=== PATIENT | male | born 1945 | race Caucasian/White ===

== ENCOUNTER → 2017-02-09 | Outpatient (CLI) | payer MEDICARE ==
[2017-02-09 07:46] LABS: ALT 26 U/L (21-72); AST 14 U/L (17-59); Cholesterol 153 mg/dL (<200); HDL Cholesterol 36 mg/dL (40-60); Triglycerides 93 mg/dL (<150)
== END | disposition home or self-care (01) ==
LOC: LABWHC1 06:57
PROVIDERS: ATTEND Internal Medicine Interventional Cardiology
DX: E78.2 Mixed hyperlipidemia (principal)
CPT/HCPCS: 36415; 80061; 84450; 84460

== ENCOUNTER → 2017-09-01 | Outpatient (CLI) | payer MEDICARE ==
[2017-09-01 08:15] LABS: ALT 30 U/L (21-72); AST 15 U/L (17-59); Alkaline Phosphatase 83 U/L (38-126); Anion Gap 8 mmol/L; Blood Urea Nitrogen 25 mg/dL (9-20); Calcium 9.4 mg/dL (8.4-10.2); Carbon Dioxide 29 mmol/L (22-30); Chloride 104 mmol/L (98-107); Cholesterol 183 mg/dL (<200); Glucose 131 mg/dL (74-99); HDL Cholesterol 36 mg/dL (40-60); Non-African American GFR(MDRD) >60 (>60 ml/min/1.73 sqM); Potassium 4.9 mmol/L (3.5-5.1); Sodium 141 mmol/L (137-145); Total Bilirubin 0.6 mg/dL (0.2-1.3)
== END | disposition home or self-care (01) ==
LOC: LABWHC1 07:12
PROVIDERS: ATTEND Internal Medicine Interventional Cardiology
DX: E78.2 Mixed hyperlipidemia (principal)
CPT/HCPCS: 36415; 80053; 80061

== ENCOUNTER → 2018-03-16 | Outpatient (CLI) | payer MEDICARE ==
[2018-03-16 09:34] LABS: ALT 52 U/L (21-72); AST 24 U/L (17-59); Cholesterol 121 mg/dL (<200); HDL Cholesterol 38 mg/dL (40-60); LDL Cholesterol,Calculated 66 mg/dL (0-99); Triglycerides 83 mg/dL (<150)
== END | disposition home or self-care (01) ==
LOC: LABWHC1 08:53
PROVIDERS: ATTEND Internal Medicine Interventional Cardiology
DX: E78.2 Mixed hyperlipidemia (principal)
CPT/HCPCS: 36415; 80061; 84450; 84460

== ENCOUNTER → 2018-09-26 | Outpatient (CLI) | payer MEDICARE ==
[2018-09-26 15:56] LABS: Albumin 3.9 g/dL (3.80-4.90); Albumin/Globulin Ratio 2.17 (1.20-2.10); Anion Gap 6.7 mmol/L (4.00-12.00); Calcium 8.7 mg/dL (8.7-10.3); Carbon Dioxide 26.3 mmol/L (21.6-31.8); Globulin 1.8 g/dL (2.1-3.7); Potassium 4.2 mmol/L (3.5-5.5); Total Bilirubin 0.6 mg/dL (0.3-1.2); Total Protein 5.7 g/dL (6.2-8.2)
[2018-09-26 15:57] LABS: LDL Cholesterol,Calculated 69.6 mg/dL (0.0-131.0); VLDL Calculation 15.4 mg/dL (5.00-40.00)
== END ==
LOC: LABWHC1 07:49
PROVIDERS: ATTEND Internal Medicine Interventional Cardiology
DX: E78.2 Mixed hyperlipidemia (principal)
CPT/HCPCS: 36415; 80053; 80061

== ENCOUNTER → 2019-04-09 | Outpatient (CLI) | payer MEDICARE ==
[2019-04-09 10:49] LABS: LDL Cholesterol,Calculated 65.6 mg/dL (0.0-131.0); VLDL Calculation 16.4 mg/dL (5.00-40.00)
== END | disposition home or self-care (01) ==
LOC: LABWHC1 07:06
PROVIDERS: ATTEND Internal Medicine Interventional Cardiology
DX: E78.2 Mixed hyperlipidemia (principal)
CPT/HCPCS: 36415; 80061; 84450; 84460

== ENCOUNTER → 2019-07-24 | Outpatient (CLI) | payer MEDICARE ==
[2019-07-24 08:35] LABS: African American GFR (CKD) >90 (>60 ml/min/1.73 sqM); Blood Urea Nitrogen 25 mg/dL (9-20)
--- NOTE | 2019-07-24 10:03 | CT ---
EXAMINATION TYPE: CT lumbar spine w con DATE OF EXAM: 07/24/2019 COMPARISON: CT lumbar spine August 24, 2016 HISTORY: Low back pain and radiculopathy. Automated exposure control for dose reduction was used. CONTRAST: CT scan of the lumbar is performed with IV Contrast, patient injected with 100 mL of Isovue 300. Enhanced CT of the lumbar spine was performed. Bone and soft tissue window settings are submitted as well as coronal and sagittal reconstructions. 5 lumbar type vertebra are redemonstrated. There is slight levoconvex scoliotic curvature at L3 level slightly more prominent from prior study. There is [id number] disc space narrowing with vacuum disc phenomenon L1-L2 level new from Prior. There is advanced disc space narrowing with vacuum disc phenomenon and endplate sclerosis with moderate anterior spurring at L2-L3 level more prominent from prior study. Moderate to advanced disc space narrowing L3-L4 level with moderate anterior spurring is fairly stabl e from prior. Slight grade 1 retrolisthesis L3 on L4 redemonstrated. Mild disc space narrowing with v acuum disc phenomenon L4-L5 level is redemonstrated. Fairly advanced disc space narrowing with modera te spurring L5-S1 level is redemonstrated. Posterior spur disc complexes efface the anterior thecal sac L2-L3, L3-L4, L5-S1 levels on current st udy. Review of axial images shows mild broad disc bulge and vacuum disc phenomenon L1-L2 level axial image 27. There is more prominent broad disc bulge and facet arthropathy L2-L3 level axial image 37 of effacing anterior and posterior lateral thecal sac with suspected moderate left and severe right-sided neural foraminal narrowing. Axial images at L3-L4 levels were advanced broad disc bulge with facet arthropathy effacing the anter ior thecal sac and causing moderate right greater than left bilateral neural foraminal narrowing. Axial images at L4-L5 level show advanced facet degenerative changes. There are bilateral laminectomy defects and spinous process resection. There is effacement of the posterior lateral thecal sac. Axial images at L5-S1 level shows moderate facet degenerative changes with spinous process resection. There is posterior spur disc. There is moderate bilateral inferior neural foraminal narrowing. Moderate calcified plaque of the aorta extends into iliac branch vessels. No suspicious enhancement i s seen. IMPRESSION: Multilevel degenerative changes lumbar spine as detailed above with some progression in f indings noted upper lumbar spine from prior study.
== END | disposition home or self-care (01) ==
LOC: RADCTMAIN 07:53
PROVIDERS: ATTEND Family Medicine
DX: M47.26 Other spondylosis with radiculopathy, lumbar region (principal)
CPT/HCPCS: 82565; 84520; 72132; 36415; Q9967

== ENCOUNTER → 2019-10-07 | Outpatient (CLI) | payer MEDICARE ==
--- NOTE | 2019-10-07 13:41 | US ---
EXAMINATION EXAMINATION TYPE: US thyroid st tissue head/neck DATE OF EXAM: 10/07/2019 COMPARISON: NONE CLINICAL HISTORY: R22.0 Localized swelling, mass and lump, head. On PACS technique/FINDINGS: The right submandibular region was scanned using grayscale and color imag ing at the area the palpable abnormality. At patient's palpable on right are several enlarged lymph nodes. 1.) 2.8 x 1.4 x 2.4 cm 2.) 2.0 x 1.3 x 2.5 cm No additional cystic or solid mass. IMPRESSION: Abnormally enlarged right submandibular lymph nodes. Fine-needle aspiration is recommend ed. CT neck with contrast could be considered prior to this to assess for source of the adenopathy.
== END | disposition home or self-care (01) ==
LOC: RADUSWWP 11:57
PROVIDERS: ATTEND Family Medicine
DX: R59.0 Localized enlarged lymph nodes (principal)
CPT/HCPCS: 76536

== ENCOUNTER → 2019-10-09 | Outpatient (CLI) | payer MEDICARE ==
[2019-10-09 12:01] LABS: African American GFR (CKD) 68.6 (60.0-200.0); Albumin 4.1 g/dL (3.80-4.90); Albumin/Globulin Ratio 2.16 (1.60-3.17); Anion Gap 10.1 mmol/L (4.00-12.00); BUN/Creat Ratio 24.17 Ratio (12.00-20.00); Carbon Dioxide 24.9 mmol/L (21.6-31.8); Chol/HDL Ratio 3.15; Globulin 1.9 g/dL (1.6-3.3); LDL Cholesterol,Calculated 67.2 mg/dL (0.0-131.0); Non-African American GFR(CKD) 59.2 (60.0-200.0); Potassium 4.2 mmol/L (3.5-5.5); VLDL Calculation 16.8 mg/dL (5.00-40.00)
== END | disposition home or self-care (01) ==
LOC: LABWHC1 07:25
PROVIDERS: ATTEND Internal Medicine Interventional Cardiology
DX: E78.2 Mixed hyperlipidemia (principal)
CPT/HCPCS: 36415; 80053; 80061

== ENCOUNTER → 2019-11-15 | Outpatient (CLI) | payer MEDICARE ==
[2019-11-15 08:19] LABS: Basophils # (A) 0.1 k/uL (0-0.2); Basophils % (A) 1 %; Eosinophils # (A) 0.2 k/uL (0-0.7); Eosinophils % (A) 3 %; HCT 43.4 % (39.0-53.0); HGB 13.7 gm/dL (13.0-17.5); Lymphocytes # (A) 1.7 k/uL (1.0-4.8); Lymphocytes % (A) 23 %; MCH 31.5 pg (25.0-35.0); MCHC 31.5 g/dL (31.0-37.0); MCV 100.3 fL (80.0-100.0); Mean Platelet Volume 7.2; Monocytes # (A) 0.6 k/uL (0-1.0); Monocytes % (A) 8 %; Neutrophils # (A) 4.6 k/uL (1.3-7.7); Neutrophils % (A) 62 %; Platelet Count 187 k/uL (150-450); RBC 4.33 m/uL (4.30-5.90); RDW 13.1 % (11.5-15.5); WBC 7.4 k/uL (3.8-10.6)
[2019-11-15 17:56] LABS: Carcinoembryonic Antigen 1.6 ng/mL (0.0-4.9)
[2019-11-15 18:12] LABS: Beta 2 Microglobulin 2.1 mg/L (0.61-2.37)
[2019-11-18 04:51] LABS: EBV - VCA IgM <10.0 U/mL (<36.0)
[2019-11-18 18:33] LABS: Bartonella henselae Ab, IgG <1:64; Bartonella henselae Ab, IgM < 1:16
== END | disposition home or self-care (01) ==
LOC: LABWHC1 07:23
PROVIDERS: ATTEND Otolaryngology
DX: R59.1 Generalized enlarged lymph nodes (principal); R22.1 Localized swelling, mass and lump, neck
CPT/HCPCS: 36415; 82232; 82378; 83615; 85025; 86611; 86665

== ENCOUNTER 2020-01-08 08:50 | Day surgery (SDC) | payer MEDICARE ==
[2020-01-08] MEDS ORDERED: ALPRAZolam 0.25 MG TAB PO ONE (09:08)
[2020-01-08 09:17] VITALS: TEMP 97.6
[2020-01-08 09:50] LABS: Glucose,Whole Blood 148 mg/dL (75-99)
[2020-01-08 10:49] VITALS: BP 163/78; PULSE 67; RESP 18
--- NOTE | 2020-01-08 14:07 | US ---
EXAMINATION TYPE: US biopsy lymph node, US FNA first lesion DATE OF EXAM: 01/08/2020 HISTORY: Right submandibular adenopathy. FINDINGS: Maximal barrier technique was utilized. Hand hygiene achieved with soap and water. The ski n overlying a suitable path to the patient's right submandibular adenopathy was localized with ultras ound and the overlying skin prepped and draped. Ultrasound was utilized with sterile technique. 2 as pirations were performed using 25-gauge needle under direct ultrasound guidance, aspirate specimen cordova bmitted to cytology, based on the findings by the pathologist, Lidocaine was used for local anesthesi a. A skin fabián was made with a scalpel. An 18-gauge needle was advanced under direct ultrasound roxanna dance and core specimen obtained of the mass. Specimen submitted in formalin to Pathology. Following the procedure, hemostasis achieved and the patient is discharged in stable condition without complic ation. IMPRESSION:STATUS POST ULTRASOUND GUIDED FINE-NEEDLE ASPIRATION AND CORE BIOPSY OF right submandibula r MASS, PATHOLOGY IS PENDING. THIS PROCEDURE IS PERFORMED BY THE UNDERSIGNED.
== END 2020-01-08 10:55 | disposition home or self-care (01) ==
LOC: RADPROMAIN 08:50
PROVIDERS: ATTEND Otolaryngology
DX: R59.0 Localized enlarged lymph nodes (principal)
CPT/HCPCS: 10005; 38505; 76942; 88173; 88305; 88341; 88342

== ENCOUNTER → 2020-04-16 | Outpatient (CLI) | payer MEDICARE ==
[2020-04-16 13:45] LABS: African American GFR (CKD) >90 (>60 ml/min/1.73 sqM); Blood Urea Nitrogen 18 mg/dL (9-20); Non-African American GFR(CKD) 86 (>60 ml/min/1.73 sqM)
--- NOTE | 2020-04-16 14:28 | CT ---
EXAMINATION TYPE: CT soft tissue neck w con DATE OF EXAM: 04/16/2020 HISTORY: right side submandibular mass/swelling COMPARISON: Neck ultrasound October 07, 2019. CT DLP: 488.6 mGycm. Automated Exposure Control for Dose Reduction was Utilized. TECHNIQUE: CT scan of the neck is performed with IV Contrast, patient injected with 100 mL of Isovue 300, axial images are obtained, coronal and sagittal reformatted images are reviewed. FINDINGS: Airway: No obvious mucosal mass. Parotid/submandibular glands: Parotid and submandibular glands are symmetric and felt within normal l imits. There are region of right submandibular gland there are several abnormal lymph nodes identified for r eference there is 2.0 x 1.4 cm lymph node axial image 49 noted. Just inferior posterior to this there is 1.9 x 1.0 cm lymph node image 46 and regional draining external jugular vein anterior to SCM. The re is enlarged 1.2 x 1.0 cm lymph node at same level anterior to the carotid and jugular vessels medi al to the SCM. No definitive greater than 1 cm left-sided neck adenopathy. No suspicious greater than 1 cm adenopathy below the level of the hyoid bone. Carotid/Vascular Structures: Mild to moderate mixed plaque at carotid bulb extending into the proxima l internal carotid arteries bilaterally without hemodynamically significant stenosis. Osseous Structures: Straightening of cervical spine with moderate spurring and disc space narrowing C 5-C6 and C6-C7 levels. Other: Mild to moderate eccentric mucosal thickening inferior left maxillary sinus. Moderate mucosal thickening involving anterior ethmoid sinuses bilaterally. IMPRESSION: Redemonstration of abnormal enlarged right submandibular lymph nodes with additional susp icious nearby right neck adenopathy above the hyoid bone. Finding should be correlated with FNA and b iopsy results January 08, 2020. Differential includes neoplasm such as lymphoma and oral pharyngeal marce plasm. Further investigation with PET scan should be considered based on clinical correlation.
== END | disposition home or self-care (01) ==
LOC: RADCTMAIN 13:05
PROVIDERS: ATTEND Otolaryngology
DX: R22.1 Localized swelling, mass and lump, neck (principal); R59.0 Localized enlarged lymph nodes; Z88.5 Allergy status to narcotic agent; Z88.6 Allergy status to analgesic agent
CPT/HCPCS: 82565; 84520; 70491; 36415; Q9967

== ENCOUNTER 2020-04-21 08:07 | Day surgery (SDC) | payer MEDICARE ==
[2020-04-21 08:36] LABS: Glucose,Whole Blood 121 mg/dL (75-99)
[2020-04-21 08:45] VITALS: RESP 16; TEMP 98.2
--- NOTE | 2020-04-21 10:15 | US ---
EXAMINATION TYPE: US biopsy lymph node, US FNA first lesion DATE OF EXAM: 04/21/2020 HISTORY: Right submandibular adenopathy FINDINGS: Maximal barrier technique was utilized. Hand hygiene achieved with soap and water. The ski n overlying a suitable path to the patient's adenopathy in the right submandibular location was local ized with ultrasound and the overlying skin prepped and draped. Ultrasound was utilized with sterile technique. Lidocaine was used for local anesthesia. 2 passes with a 25-gauge needle and a single pa ss with a 21 gauge needle were made and submitted to cytology. Pathologist suggested 2 core biopsies which were obtained. 20-gauge needle using similar technique and submitted to pathology. A skin fabián was made with a scalpel for core biopsy. Following the procedure, hemostasis achieved and the patien t is discharged in stable condition without complication. IMPRESSION:STATUS POST ULTRASOUND GUIDED CORE AND ASPIRATION BIOPSY OF RIGHT SUBMANDIBULAR ADENOPATHY , PATHOLOGY IS PENDING. THIS PROCEDURE IS PERFORMED BY THE UNDERSIGNED.
[2020-04-21 10:37] VITALS: BP 141/71; PULSE 78
== END 2020-04-21 10:25 | disposition home or self-care (01) ==
LOC: RADPROMAIN 08:07
PROVIDERS: ATTEND Otolaryngology
DX: R22.1 Localized swelling, mass and lump, neck (principal); R59.9 Enlarged lymph nodes, unspecified; Z88.6 Allergy status to analgesic agent; Z88.5 Allergy status to narcotic agent
CPT/HCPCS: 10005; 38505; 76942; 88173; 88305

== ENCOUNTER → 2020-05-05 | Day surgery (SDC) | payer MEDICARE ==
[2020-05-01 15:31] VITALS: BMI 33.5
[~2020-05-05] MED LIST: LACTATED RINGERS 1,000 ML IV SCH; PROPOFOL 10 MG/ML 20 ML VIAL IV ONE
[2020-05-05 09:59] VITALS: TEMP 97.8
[2020-05-05 10:11] LABS: Glucose,Whole Blood 136 mg/dL (75-99)
--- NOTE | 2020-05-05 10:15 | P.GSHP ---
History of Present Illness H&P Date: 05/05/20 Chief Complaint: Change in bowel habits Patient here today for colonoscopy. Has had some intermittent diarrhea and constipation. He thinks he had a bowel resection many years ago for a benign tumor. He has had colon polyps in the past. Last colonoscopy over 10 years ago. No rectal bleeding. No family history of colon cancer. 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 Last Myocardial Infarction Date:: 1997 History of Any Multi-Drug Resistant Organisms: None Reported Past Surgical History: Back Surgery, Bowel Resection, Heart Catheterization With Stent, Tonsillectomy Additional Past Surgical History / Comment(s): Stent in right coronary artery by Dr Mart, bowel resection 1979, uvula removal for sleep apnea, left carotid endarterectomy in approximately [address] Evans, back surgery times [address] Rogers[address] Colonoscopy. Past Anesthesia/Blood Transfusion Reactions: Previous Problems w/ Anesthesia Additional Past Anesthesia/Blood Transfusion Reaction / Comment(s): difficult intubation with left carotid endarterectomy surgery but later they always used a glidescope to intubate him. Date of Last Stent Placement:: 1997 Past Psychological History: Anxiety Past Alcohol Use History: Rare Additional Past Alcohol Use History / Comment(s): quit smoking in 1999 Past Drug Use History: None Reported - Past Family History Mother Family Medical History: CVA/TIA Father Additional Family Medical History / Comment(s): of surgical complications Medications and Allergies Home Medications Medication Instructions Recorded Confirmed Type Aspirin 325 mg PO HS 12/26/19 05/05/20 History Atorvastatin [Lipitor] 80 mg PO HS 12/26/19 05/05/20 History Losartan Potassium [Cozaar] 100 mg PO HS 12/26/19 05/05/20 History Niacin [Niacin ER] 1,000 mg PO HS 12/26/19 05/05/20 History Omeprazole [PriLOSEC] 40 mg PO HS 12/26/19 05/05/20 History metFORMIN HCL [Glucophage] 500 mg PO HS 12/26/19 05/05/20 History Albuterol Inhaler [Ventolin Hfa 1 puff INHALATION RT-QID PRN 04/07/20 05/05/20 History Inhaler] Memantine HCl 5 mg PO HS 04/07/20 05/05/20 History Allergies Allergy/AdvReac Type Severity Reaction Status Date / Time No Known Allergies Allergy Verified 05/05/20 09:50 Surgical - Exam Vital Signs Temp Pulse Resp BP Pulse Ox 97.8 F 90 18 141/81 98 05/05/20 09:58 05/05/20 09:58 05/05/20 09:58 05/05/20 09:58 05/05/20 09:58 Physical exam: General: Well-developed, well-nourished HEENT: Normocephalic, sclerae nonicteric Abdomen: Nontender, nondistended Extremities: No edema Neuro: Alert and oriented Results - Labs Abnormal Lab Results - Last 24 Hours (Table) 05/05/20 Range/Units 10:07 POC Glucose (mg/dL) 136 H (75-99) mg/dL Assessment and Plan (1) Change in bowel habits Narrative/Plan: Will proceed with colonoscopy Current Visit: Yes Status: Acute Code(s): R19.4 - CHANGE IN BOWEL HABIT SNOMED Code(s): 412621557
--- NOTE | 2020-05-05 10:43 | P.PCN ---
Date of Procedure: 05/05/20 Procedure(s) Performed: PREOPERATIVE DIAGNOSIS: Change in bowel habits POSTOPERATIVE DIAGNOSIS: Multiple Polyps PROCEDURE: Colonoscopy with snare polypectomy ANESTHESIA: MAC SURGEON: Naeem Kimbrough M.D. SPECIMENS: Polyps ENDOSCOPIC PROCEDURE: The patient was placed on the endoscopy table in the left decubitus position. The Olympus colonoscope was inserted into the anus and passed under direct visualization to the ascending colon. At one point I thought I could visualize the cecum from a distance but I cannot be sure. We were unable to advance further given distal tortuosity. The ascending appeared normal. In the transverse colon 2 polyps were seen and removed using the snare with cautery technique. In the descending colon 2 polyps were seen and again removed using the snare with cautery technique. In the rectum a single polyp was identified and removed using the snare with cautery technique. There was no visible diverticulosis. Some of these polyps appeared to be fulgurated during the removal. Rectal polyp and ascending colon polyps were sent together. Digital rectal examination was normal. The patient was taken to the recovery room in stable condition per anesthesia guidelines. RECOMMENDATIONS: Await biopsy results. Advise follow-up colonoscopy 2 years.
[2020-05-05 10:46] VITALS: RESP 20
[2020-05-05 11:02] VITALS: BP 132/64; PULSE 68
== END ==
LOC: ORWHC2ENDO 09:32
PROVIDERS: ATTEND Surgery
DX: D12.4 Benign neoplasm of descending colon (principal); D12.3 Benign neoplasm of transverse colon; R19.7 Diarrhea, unspecified; K59.00 Constipation, unspecified; Z86.010 Personal history of colon polyps; I25.119 Atherosclerotic heart disease of native coronary artery with unspecified angina pectoris; I10 Essential (primary) hypertension; E11.9 Type 2 diabetes mellitus without complications; I25.2 Old myocardial infarction; E78.5 Hyperlipidemia, unspecified; K21.9 Gastro-esophageal reflux disease without esophagitis; F01.50 Vascular dementia, unspecified severity, without behavioral disturbance, psychotic disturbance, mood disturbance, and anxiety; F41.9 Anxiety disorder, unspecified; J45.909 Unspecified asthma, uncomplicated; Z95.5 Presence of coronary angioplasty implant and graft; Z79.82 Long term (current) use of aspirin; Z79.899 Other long term (current) drug therapy; Z79.84 Long term (current) use of oral hypoglycemic drugs; Z98.890 Other specified postprocedural states; Z90.49 Acquired absence of other specified parts of digestive tract; Z90.89 Acquired absence of other organs; Z87.891 Personal history of nicotine dependence; Z82.3 Family history of stroke
CPT/HCPCS: 88305; 45385; J2704

== ENCOUNTER → 2020-05-06 | Outpatient (CLI) | payer MEDICARE ==
[2020-05-06 20:32] LABS: Anion Gap 9.2 mmol/L (4.00-12.00); Carbon Dioxide 24.8 mmol/L (21.6-31.8); Potassium 4.7 mmol/L (3.5-5.5)
== END | disposition home or self-care (01) ==
LOC: LABWHC1 09:28
PROVIDERS: ATTEND Otolaryngology
DX: I10 Essential (primary) hypertension (principal)
CPT/HCPCS: 36415; 80051

== ENCOUNTER → 2020-07-31 | Outpatient (CLI) | payer MEDICARE ==
[2020-07-31 19:24] LABS: Albumin 3.9 g/dL (3.80-4.90); Albumin/Globulin Ratio 1.86 (1.60-3.17); Anion Gap 6.8 mmol/L (4.00-12.00); Calcium 9.2 mg/dL (8.7-10.3); Carbon Dioxide 27.2 mmol/L (21.6-31.8); Chol/HDL Ratio 2.82; Globulin 2.1 g/dL (1.6-3.3); LDL Cholesterol,Calculated 55.6 mg/dL (0.0-131.0); Non-African American GFR(CKD) 73.3 (60.0-200.0); Potassium 4.9 mmol/L (3.5-5.5); Total Bilirubin 0.9 mg/dL (0.3-1.2); VLDL Calculation 13.4 mg/dL (5.00-40.00)
== END | disposition home or self-care (01) ==
LOC: LABWHC1 07:45
PROVIDERS: ATTEND Internal Medicine Interventional Cardiology
DX: E78.2 Mixed hyperlipidemia (principal)
CPT/HCPCS: 36415; 80053; 80061

== ENCOUNTER → 2020-08-17 | Outpatient (CLI) | payer MEDICARE ==
--- NOTE | 2020-08-17 18:24 | CT ---
EXAMINATION TYPE: CT soft tissue neck w con DATE OF EXAM: 08/17/2020 9:37 AM COMPARISON: CT neck 04/16/2020. Ultrasound biopsy 04/21/2020. HISTORY: Localized swelling, mass/lump right side neck CT DLP: 544.0 mGycm Automated exposure control for dose reduction was used. CONTRAST: CT scan of the neck is performed following with IV Contrast, patient injected with 100 mL of Isovue 3 00. Axial images are obtained, coronal and sagittal reformatted images are reviewed. FINDINGS: Within the right submandibular region there is redemonstrated cervical lymphadenopathy, some of which is unchanged and some of which has significantly decreased in size versus 04/16/2020 CT comparison. T he largest 2 lymph nodes measure 1.5 x 2.0 cm (3:60) and 0.8 x 1.2 cm (3:59) and are unchanged versus 04/16/2020. A prejugular 0.9 x 1.3 cm lymph node (3:55) is decreased in size and previously measured 1.0 x 1.4 cm. A now nonenlarged lymph node just posterior to the submandibular gland measures 0.4 x 0 .7 cm (3:53) , decreased in size previously measuring 1.0 x 1.9 cm. The parotid and mandibular glands are symmetric and unremarkable. Redemonstrated atherosclerotic dise ase and intimal thickening of the bilateral carotid bulbs without hemodynamically significant stenosi s. There is mucosal thickening of the paranasal sinuses. Mastoid air cells are clear. Degenerative prater es of the cervical spine. IMPRESSION: Right submandibular lymphadenopathy as above, some of which is unchanged and some of which is decreas ed in size versus 04/16/2020 CT comparison.
== END | disposition home or self-care (01) ==
LOC: RADCTMAIN 08:39
PROVIDERS: ATTEND Otolaryngology
DX: R59.0 Localized enlarged lymph nodes (principal); Z88.6 Allergy status to analgesic agent; Z88.5 Allergy status to narcotic agent; Z88.2 Allergy status to sulfonamides
CPT/HCPCS: 82565; 84520; 70491; 36415; Q9967

== ENCOUNTER 2020-09-01 12:13 | Day surgery (SDC) | payer MEDICARE ==
[2020-09-01 12:37] VITALS: RESP 16; TEMP 97.7
[2020-09-01 13:18] VITALS: BP 156/78; PULSE 80
--- NOTE | 2020-09-01 14:11 | US ---
ULTRASOUND GUIDED CORE BIOPSY SOFT TISSUE RIGHT NECK LYMPH NODE: CLINICAL HISTORY: Right neck mass FINDINGS: The procedure was explained to the patient. The risks, complications, benefits and alternatives were discussed and any questions were answered. Informed consent was obtained. Patient was placed supin e on the ultrasound table and prepped and draped in the usual sterile fashion. Utilizing a 25 gauge needle, 3 passes were made into the right neck. Patient was stable throughout the procedure. Pathology is pending. All elements of maximal barrier technique were utilized. IMPRESSION: 1. Successful ultrasound biopsy right neck lymph node.
== END 2020-09-01 13:25 | disposition home or self-care (01) ==
LOC: RADPROMAIN 12:13
PROVIDERS: ATTEND Otolaryngology
DX: R59.1 Generalized enlarged lymph nodes (principal); R22.1 Localized swelling, mass and lump, neck; Z88.5 Allergy status to narcotic agent
CPT/HCPCS: 38505; 76942; 88305; 88341; 88342

== ENCOUNTER → 2021-02-03 | Outpatient (CLI) | payer MEDICARE ==
[2021-02-03 17:08] LABS: Chol/HDL Ratio 3.94; LDL Cholesterol,Calculated 81.4 mg/dL (0.0-131.0); VLDL Calculation 24.6 mg/dL (5.00-40.00)
== END | disposition home or self-care (01) ==
LOC: LABWHC1 08:14
PROVIDERS: ATTEND Nurse Practitioner Adult Health
DX: E78.2 Mixed hyperlipidemia (principal)
CPT/HCPCS: 36415; 80061; 84450; 84460

== ENCOUNTER → 2021-07-07 | Outpatient (CLI) | payer MEDICARE ==
--- NOTE | 2021-07-08 07:35 | CT ---
EXAMINATION TYPE: CT abdomen pelvis w con DATE OF EXAM: 07/07/2021 COMPARISON: None. HISTORY: Abdominal and pelvic pain not further specified. Constipation. CT DLP: 1632.70 mGycm, Automated Exposure Control for Dose Reduction was Utilized. CONTRAST: CT scan of the abdomen and pelvis is performed with oral and with IV Contrast, patient injected with 100 mL of Isovue 300. FINDINGS: LUNG BASES: Metallic density RCA distribution is noted. Mild bibasilar linear scarring and/or atelect asis. LIVER/GB: Gallbladder is distended margins and is dilated without surrounding fluid or fat stranding. Liver is heterogeneously hypoechoic suggesting mild diffuse fatty infiltration. Correlate clinically with liver lab values. No biliary dilatation noted. PANCREAS: No significant abnormality is seen. SPLEEN: No significant abnormality is seen. ADRENALS: No significant abnormality is seen. KIDNEYS: Poorly distended bladder with moderate concentric wall thickening. Findings presumed on the basis of outlet obstruction related to BPH. There is 2 mm nonobstructing calculus suspected lower kim e right kidney coronal image 55 in midpole right kidney coronal image 56 along with lower pole left k idney coronal image 54. Symmetric cortical medullary uptake and excretion is present without hydronep hrosis seen bilaterally. Prominence of retroperitoneal fat consistent with lipomatosis noted BOWEL: Oral contrast does not reach colonic level making evaluation of distal bowel slightly suboptim al. No suspicious small or large bowel dilatation is seen. Mild diffuse colonic fecal prominence. A f ew distal colonic diverticula. No CT evidence for acute diverticulitis. PROSTATE/SEMINAL VESICLES: Enlarged prostate consistent with BPH. Posterior calcifications. Adjacent phleboliths LYMPH NODES: No greater than 1cm abdominal or pelvic lymph nodes are appreciated. OSSEOUS STRUCTURES: Levoconvex scoliosis centered mid lumbar spine. Moderate to severe multilevel ant erior and lateral spurring and disc space narrowing. Most prominent disc space narrowing at L2-L3, L3 -L4, and L5-S1 levels. Laminectomy defects with spinous process resection lower lumbar spine noted. M oderate axial joint space loss both hips. OTHER: Moderate calcified plaque of the aorta extends into branch vessels. Surgical clips throughout the right mid to lower quadrant mesentery are noted IMPRESSION: 1. No bowel obstruction. Mild diffuse colonic fecal stasis. Mild to minimal distal colonic diverticul a without CT evidence for acute diverticulitis. 2. Enlarged prostate consistent with BPH causing outlet obstruction due to bladder. Correlate clinica lly. 3. Scoliosis with fairly advanced degenerative changes throughout the lumbar spine. Posterior lower l umbar spine decompression surgical changes noted.
== END | disposition home or self-care (01) ==
LOC: RADCTMAIN 17:17
PROVIDERS: ATTEND Family Medicine
DX: K57.30 Diverticulosis of large intestine without perforation or abscess without bleeding (principal); N40.0 Benign prostatic hyperplasia without lower urinary tract symptoms; R19.5 Other fecal abnormalities
CPT/HCPCS: 82565; 84520; 74177; 36415; Q9967

== ENCOUNTER → 2021-08-16 | Outpatient (CLI) | payer MEDICARE ==
--- NOTE | 2021-08-16 16:01 | NM ---
EXAMINATION TYPE: NM hepatobiliary w EF DATE OF EXAM: 08/16/2021 COMPARISON: CT 07/07/2021 HISTORY: R 10.13, right upper quadrant pain TECHNIQUE: After the intravenous administration of 3.8 mCi Tc 99m Mebrofenin hepatobiliary scintigrap hy is performed. Immediate images post injection. FINDINGS: There is satisfactory initial accumulation of tracer by the liver. The gallbladder is visualized wit hin 60 minutes. The small bowel activity is noted within 15 minutes. At one hour 8 ounces of oral e nsure plus is given to mimic CCK and gallbladder ejection fraction is calculated at 0 %, normal range . Therefore there is no scintigraphic evidence of cystic or common bile duct obstruction to suggest acute cholecystitis . IMPRESSION: Abnormal gallbladder ejection fraction
== END | disposition home or self-care (01) ==
LOC: RADNMMAIN 12:44
PROVIDERS: ATTEND Family Medicine
DX: R93.2 Abnormal findings on diagnostic imaging of liver and biliary tract (principal)
CPT/HCPCS: 78226; A9537

== ENCOUNTER → 2021-08-18 | Outpatient (CLI) | payer MEDICARE ==
[2021-08-18 18:44] LABS: Albumin 3.9 g/dL (3.8-4.9); Albumin/Globulin Ratio 1.42 (1.60-3.17); Anion Gap 10.5 mmol/L (4.00-12.00); BUN/Creat Ratio 20.27 Ratio (12.00-20.00); Blood Urea Nitrogen 19.4 mg/dL (9.0-27.0); Calcium 8.8 mg/dL (8.7-10.3); Carbon Dioxide 24.9 mmol/L (21.6-31.8); Chol/HDL Ratio 3.45 Ratio; Globulin 2.7 g/dL (1.6-3.3); HDL Cholesterol 41.4 mg/dL (40.00-60.00); LDL Cholesterol,Calculated 80.2 mg/dL (0.0-131.0); Non-African American GFR(CKD) 76.8 (60.0-200.0); Potassium 4.4 mmol/L (3.5-5.5); Total Bilirubin 0.5 mg/dL (0.30-1.20); Total Protein 6.6 g/dL (6.2-8.2); VLDL Calculation 21.4 mg/dL (5.00-40.00)
== END | disposition home or self-care (01) ==
LOC: LABWHC1 09:39
PROVIDERS: ATTEND Nurse Practitioner Adult Health
DX: I10 Essential (primary) hypertension (principal); E78.2 Mixed hyperlipidemia
CPT/HCPCS: 36415; 80053; 80061

== ENCOUNTER → 2022-03-07 | Outpatient (CLI) | payer MEDICARE ==
[2022-03-07 14:38] LABS: ALT 16 U/L (10-49); AST 17 U/L (14-35); Chol/HDL Ratio 4.02 Ratio; LDL Cholesterol,Calculated 85.3 mg/dL (0.0-131.0)
== END | disposition home or self-care (01) ==
LOC: LABWHC1 08:40
PROVIDERS: ATTEND Nurse Practitioner Adult Health
DX: E78.2 Mixed hyperlipidemia (principal)
CPT/HCPCS: 36415; 80061; 84450; 84460

== ENCOUNTER → 2022-08-16 | Outpatient (CLI) | payer MEDICARE ==
[2022-08-16 11:02] LABS: African American GFR (CKD) >90 (>60 ml/min/1.73 sqM); Blood Urea Nitrogen 27 mg/dL (9-20); Non-African American GFR(CKD) 84 (>60 ml/min/1.73 sqM)
--- NOTE | 2022-08-16 12:08 | CT ---
EXAMINATION TYPE: CT chest w con DATE OF EXAM: 08/16/2022 COMPARISON: CT 01/03/2012 HISTORY: 77-year-old male J44.1, cough, COPD TECHNIQUE: Contiguous axial scanning of the chest after the administration of 70cc mL of Isovue 300. Coronal/sagittal reconstructions performed. CT DLP: 446.2mGycm. Automatic exposure control utilized for a dose reduction. FINDINGS: Heart normal size without pericardial effusion. LAD and RCA coronary artery calcifications are presen t and are remarkable for coronary artery disease. 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 Mild atherosclerotic arch calc ifications with conventional arch vessel branching anatomy. Prominent 8 mm lower right paratracheal lymph node. No thoracic lymphadenopathy by CT size criteria. Mild centrilobular emphysema. Strandy atelectasis or scarring in the lower lungs. Suspect some pleura l-parenchymal scarring that has formed in the interval at the periphery of the right base. Three-gricelda h follow-up to exclude an underlying 1.3 cm subpleural nodule, axial image 48. There is a 6 mm area of endobronchial opacification involving a segmental branch of the medial right upper lobe, axial image 21. Differential considerations include some endobronchial plugging or early endobronchial neoplasm. This should be reassessed at short interval follow-up. Visualized upper abdomen shows mildly hydropic gallbladder measuring 4.7 cm wide but without any surr ounding inflammation. Possibly due to fasting state. Old retained surgical clip in the left perisplen ic region versus the posterior left costophrenic angle. Bones: [facility] in the mid and lower thoracic spine. Moderate to advanced degenerative disc disease lower thoracic and visualized upper lumbar spine. Normal variant sternal foramen. IMPRESSION: 1. A 6 mm area of endobronchial opacification involving a segmental branch of the medial right upper lobe, axial image 21. Differential considerations include endobronchial mucous plugging versus early endobronchial neoplasm. Three-month follow-up CT to reassess. Consider pulmonary medicine evaluation. 2. Suspect interval development of some pleural parenchymal scarring at the right base. Three-month f ollow-up CT can exclude an underlying 1.3 cm nodule here. 3. COPD with mild emphysema. Coronary artery disease. 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 4. DISH mid and lower thoracic spine. Moderate to advanced degenerative disc disease lower thoracic a nd visualized upper lumbar spine.
== END | disposition home or self-care (01) ==
LOC: RADCTMAIN 10:09
PROVIDERS: ATTEND Family Medicine
DX: J44.1 Chronic obstructive pulmonary disease with (acute) exacerbation (principal); I25.10 Atherosclerotic heart disease of native coronary artery without angina pectoris; M51.34 Other intervertebral disc degeneration, thoracic region
CPT/HCPCS: 82565; 84520; 71260; 36415; Q9967

== ENCOUNTER → 2022-09-05 | Outpatient (CLI) | payer MEDICARE ==
[2022-09-05 14:29] LABS: ALT 24 U/L (10-49); AST 19 U/L (14-35); African American GFR (CKD) 83.8 (60.0-200.0); Albumin 3.8 g/dL (3.8-4.9); Albumin/Globulin Ratio 1.32 (1.60-3.17); Alkaline Phosphatase 93 U/L (41-126); Calcium 9.1 mg/dL (8.7-10.3); Carbon Dioxide 27.2 mmol/L (20.0-27.5); Chloride 101 mmol/L (96-109); Chol/HDL Ratio 2.98 Ratio; Globulin 2.9 g/dL (1.6-3.3); Glucose 162 mg/dL (70-110); LDL Cholesterol,Calculated 66.8 mg/dL (0.0-131.0); Non-African American GFR(CKD) 72.3 (60.0-200.0); Potassium 4.7 mmol/L (3.5-5.5); Sodium 137 mmol/L (135-145); Total Protein 6.7 g/dL (6.2-8.2); VLDL Calculation 16.24 mg/dL (5.00-40.00)
== END | disposition home or self-care (01) ==
LOC: LABWHC1 09:25
PROVIDERS: ATTEND Internal Medicine Interventional Cardiology
DX: E78.2 Mixed hyperlipidemia (principal)
CPT/HCPCS: 36415; 80053; 80061

== ENCOUNTER → 2022-10-25 | Outpatient (CLI) | payer MEDICARE ==
[2022-10-25 18:26] LABS: Basophils # (A) 0.08 X 10*3/uL (0.00-0.10); Basophils % (A) 0.8 %; Eosinophils # (A) 0.42 X 10*3/uL (0.04-0.35); Eosinophils % (A) 4.4 %; HCT 43.9 % (39.6-50.0); HGB 13.8 g/dL (13.0-17.0); Immature Grans, Automated 0.6 %; Lymphocytes # (A) 1.99 X 10*3/uL (0.90-5.00); Lymphocytes % (A) 20.8 %; MCH 31.7 pg (27.0-32.0); MCHC 31.4 g/dL (32.0-37.0); MCV 100.7 fL (80.0-97.0); Monocytes # (A) 0.93 X 10*3/uL (0.20-1.00); Monocytes % (A) 9.7 %; NRBC Per 100 WBC 0 /100 WBCS (0.0-0.0); Neutrophils # (A) 6.08 X 10*3/uL (1.80-7.70); Neutrophils % (A) 63.7 %; Platelet Count 217 X 10*3/uL (140-440); RBC 4.36 X 10*6/uL (4.40-5.60); RDW 12.9 % (11.5-14.5); WBC 9.56 X 10*3/uL (4.50-10.00)
[2022-10-25 19:13] LABS: African American GFR (CKD) 82.8 (60.0-200.0); Anion Gap 11.5 mmol/L (10.00-18.00); Blood Urea Nitrogen 25.3 mg/dL (9.0-27.0); Carbon Dioxide 26.8 mmol/L (20.0-27.5); Non-African American GFR(CKD) 71.4 (60.0-200.0); Potassium 4.7 mmol/L (3.5-5.5)
== END | disposition home or self-care (01) ==
LOC: LABPAT 13:19
PROVIDERS: ATTEND Internal Medicine Interventional Cardiology
DX: Z01.812 Encounter for preprocedural laboratory examination (principal); I25.10 Atherosclerotic heart disease of native coronary artery without angina pectoris
CPT/HCPCS: 36415; 80051; 82565; 84520; 85025

== ENCOUNTER 2022-11-01 06:27 | Day surgery (SDC) | payer MEDICARE ==
[2022-10-27 12:33] VITALS: BMI 30.1
[~2022-11-01 06:27] MED LIST changes: +ALPRAZolam 0.25 MG TAB PO PRN; +ALPRAZolam 0.5 MG TAB PO PRN; +ASPIRIN 325 MG TAB PO STA; +ATORVASTATIN 80 MG TAB PO STA; -LACTATED RINGERS 1,000 ML IV SCH; +NITROGLYCERIN SL TABS 0.4 MG TAB SUBLINGUAL PRN; -PROPOFOL 10 MG/ML 20 ML VIAL IV ONE; +SODIUM CHLORIDE 0.9% 1,000 ML in EMPTY BAG 1 BAG IV SCH
[2022-11-01 06:53] VITALS: RESP 18; TEMP 97.4
[2022-11-01 06:54] LABS: Glucose,Whole Blood 170 mg/dL (70-110)
[2022-11-01] MEDS ORDERED: HEPARIN SODIUM,PORCINE 2,500 UNIT in SODIUM CHLORIDE 0.9% 250 ML IRRIGATION PRN (07:00)
[2022-11-01] MEDS ORDERED: HEPARIN SODIUM,PORCINE 10,000 UNIT in SODIUM CHLORIDE 0.9% 1,000 ML IRRIGATION PRN (07:00)
[2022-11-01] MEDS ORDERED: HEPARIN SODIUM 1,000 UN/ML (10ML VL) ONE (07:26)
[2022-11-01] MEDS ORDERED: fentaNYL (PF) 50 MCG/ML 2 ML AMP ONE (07:27)
[2022-11-01] MEDS ORDERED: fentaNYL (PF) 50 MCG/ML 2 ML AMP IV ONE (07:39)
[2022-11-01] MEDS ORDERED: LIDOCAINE 1% INJ 10MG/ML (5 ML VIAL-PF) SQ ONE (07:43)
[2022-11-01] MEDS ORDERED: VERAPAMIL SYRINGE (5 MG/10 ML) INTRAARTER ONE (07:44)
[2022-11-01] MEDS ORDERED: MIDAZOLAM 2 MG/2 ML VIAL IV ONE (07:46)
[2022-11-01] MEDS: HEPARIN SODIUM 1,000 UN/ML (10ML VL) IV ONE ×2 (07:50→07:55)
[2022-11-01] MEDS ORDERED: CLOPIDOGREL 75 MG TAB ONE (07:59)
[2022-11-01] MEDS ORDERED: CLOPIDOGREL 75 MG TAB PO ONE (08:02)
[2022-11-01] MEDS ORDERED: NITROGLYCERIN 1000MCG/10ML SYRINGE INTRACORON ONE (08:06)
[2022-11-01] MEDS ORDERED: IOPAMIDOL-370 125ML BTL INJ ONE (08:10)
[2022-11-01] MEDS ORDERED: IOPAMIDOL-370 100ML BTL INJ ONE (08:44)
[2022-11-01] MEDS ORDERED: RX INFO: IV CONTRAST WAS GIVEN 1 EACH MISC MISCELLANE PRN (08:54)
[2022-11-01] MEDS ORDERED: ZOLPIDEM 5 MG TAB PO PRN (08:54)
[2022-11-01] MEDS ORDERED: MAG HYDROX/AL HYDROX/SIMETH 30 ML CUP PO PRN (08:54)
[2022-11-01] MEDS ORDERED: ATROPINE SULFATE 0.1 MG/ML 10ML SYRINGE IV PRN (08:54)
[2022-11-01] MEDS ORDERED: NITROGLYCERIN SL TABS 0.4 MG TAB SUBLINGUAL PRN (08:54)
[2022-11-01] MEDS ORDERED: SODIUM CHLORIDE 0.9% 1,000 ML in EMPTY BAG 1 BAG IV SCH (09:00)
--- NOTE | 2022-11-01 09:05 | P.CARDCATH ---
Date of Procedure: 11/01/22 Description of Procedure: Cardiac Catheterization: The patient is a 77-year-old female with a known history of hypertension, hyperlipidemia and diabetes, status post stenting in 1998 who has been complaining of exertional chest discomfort and had an abnormal MPI. Recommendations were made regarding cardiac catheterization, the risks and the complications were discussed with the patient who is in full understanding and agreement. Procedure Description: Patient was brought to bolt labeler in fasting semi-sedated state after receiving Fentanyl and Benadryl achieiving moderate conscious sedated state. Using Xylocaine Anesthesia and Seldinger technique, a 6-Uzbek sheath was introduced in the right radial artery . Subsequently, selective coronary angiography was performed using a 5-Uzbek 3.5 bend Evangelina catheter. Multiple views of the coronary artery including hemiaxial views were obtained. The left Evangelina catheter was used to cross the aortic valve and LVEDP was calculated. After removing the catheters a 6-Uzbek 0.75 AL guiding catheter was introduced and after cannulating the right coronary ostium, a 0.014 BMW J-wire with a microcatheter super cross were advanced, the subtotal occlusion was crossed after removing the microcatheter a 2.0 x 12 mm Treck was advanced and multiple inflations at 10 diane were done after removing the balloon a 2.75 X 15 mm Treck balloon was advanced and inflations at 8 diane were done. Following that an [place] [employer] IVUS catheter was advanced and images were obtained. After removing the catheter a 3.0 x 23 mm Xience Skypoint stent was deployed at 16 diane after removing the balloon a 4.0 x 33 mm Xience skypoint was deployed proximal to the first one and deployed at 16 diane. After removing the balloon repeat intravascular ultrasound imaging was performed. Following that the 4.0 x 20 mm NC Treck was advanced and multiple inflations were done at 12 diane. Following that, catheter and sheath were removed. Hemostasis was obtained with deployment of TR band . There was no immediate complication. Patient was returned to room in stable condition. Of note, the patient received a total of 7000 units of intravenous heparin as well as intra-arterial verapamil. He received an oral loading dose of clopidogrel. His ACT was monitored. He had no significant EKG changes or chest discomfort. Findings: Left main: This is a short sized vessel, bifurcating into LAD and left circumflex, left main has no high-grade stenosis LAD: This is a large size vessel, giving rise to 2 large diagonal branch, the LAD and its branches have no evidence of high-grade stenosis Left circumflex: This is a large nondominant vessel giving rise to a large obtuse marginal branch that has no evidence of high-grade stenosis. RCA: This is a large-size vessel, subtotally occluded distally with no significant antegrade flow with collaterals from the left coronary system to the right PDA Left Ventriculogram: Not performed Hemodynamics:. There was no gradient across the aortic valve, LVEDP was 12-14 mmHg Conclusion: 1. Subtotally occluded distal RCA with collaterals from the left system 2. No evidence of obstructive disease in the LAD and left circumflex 3. Successful stenting of the distal RCA with reduction of stenosis from 99% to 0% 4. Normal EDP Recommendations: The patient will continue on dual antiplatelet treatment with aspirin and Plavix for 6 months without any interruption in addition to aggressive coronary risks modifications. The findings and the recommendations were discussed with the patient and the family and they were in full understanding and agreement. Duration of sedation is 64 minutes.
[2022-11-01 15:39] VITALS: BP 124/56; PULSE 78
[2022-11-01] MEDS ORDERED: LOSARTAN 50 MG TAB PO SCH (21:00)
[2022-11-01] MEDS ORDERED: MEMANTINE 10 MG TAB PO SCH (21:00)
[2022-11-01] MEDS ORDERED: ATORVASTATIN 80 MG TAB PO SCH (21:00)
[2022-11-01] MEDS ORDERED: DONEPEZIL 10 MG TAB PO SCH (21:00)
[2022-11-01] MEDS ORDERED: PANTOPRAZOLE 40 MG TABLET PO SCH (21:00)
[2022-11-02] MEDS ORDERED: ISOSORBIDE MONONITRATE ER 30 MG TAB.ER.24H PO SCH (09:00)
[2022-11-02] MEDS ORDERED: CLOPIDOGREL 75 MG TAB PO SCH (09:00)
[2022-11-02] MEDS ORDERED: ASPIRIN 81 MG PO SCH (09:00)
== END 2022-11-01 15:41 | disposition home or self-care (01) ==
LOC: CATHCVL 06:27 → EDSTATUS 07:30 → CATHCVL 15:41
PROVIDERS: ATTEND Internal Medicine Interventional Cardiology
DX: I25.10 Atherosclerotic heart disease of native coronary artery without angina pectoris (principal); I10 Essential (primary) hypertension; E78.5 Hyperlipidemia, unspecified
CPT/HCPCS: 92978; 93458; C9600; C1769 ×3; C1887 ×2; C1894; C1725 ×3; C1753; C1874 ×2; J2250; J2001; J3010; J1644; Q9967 ×2

== ENCOUNTER 2023-01-05 16:23 | Emergency (ER) | payer MEDICARE ==
[~2023-01-05 16:23] MED LIST changes: -ALPRAZolam 0.25 MG TAB PO PRN; -ALPRAZolam 0.5 MG TAB PO PRN; -ASPIRIN 325 MG TAB PO STA; -ATORVASTATIN 80 MG TAB PO STA; +EPINEPHrine 10 ML SYRINGE (0.1 MG/ML) ONE; +FUROSEMIDE 10 MG/ML 10 ML VIAL ONE; -NITROGLYCERIN SL TABS 0.4 MG TAB SUBLINGUAL PRN; +SODIUM BICARB 8.4% 50 ML SYR (1 MEQ/ML) ONE; -SODIUM CHLORIDE 0.9% 1,000 ML in EMPTY BAG 1 BAG IV SCH
[2023-01-05] MEDS ORDERED: SODIUM CHLORIDE 0.9% 1,000 ML IV STA (16:34)
[2023-01-05 16:52] LABS: Basophils # (A) 0.2 k/uL (0-0.2); Basophils % (A) 1 %; Eosinophils # (A) 0.2 k/uL (0-0.7); Eosinophils % (A) 1 %; HCT 51.7 % (39.0-53.0); HGB 15.2 gm/dL (13.0-17.5); Hypochromasia Marked; Lymphocytes % (A) 28 %; MCH 31.9 pg (25.0-35.0); MCHC 29.3 g/dL (31.0-37.0); MCV 108.6 fL (80.0-100.0); Macrocytosis Moderate; Mean Platelet Volume 7.8; Monocytes # (A) 0.7 k/uL (0-1.0); Monocytes % (A) 4 %; Neutrophils # (A) 11.4 k/uL (1.3-7.7); Neutrophils % (A) 64 %; Platelet Count 145 k/uL (150-450); RBC 4.76 m/uL (4.30-5.90); RDW 12.1 % (11.5-15.5)
[2023-01-05 17:05] LABS: Calcium 8.4 mg/dL (8.4-10.2); Total Bilirubin 0.7 mg/dL (0.2-1.3)
[2023-01-05 17:09] LABS: ABG Base Excess -7.9 mmol/L; ABG HCO3 24 mmol/L (21-25); ABG PO2 69 mmHg (83-108); ABG TCO2 27 mmol/L (19-24); Allen Test Performed? Yes
[2023-01-05] MEDS ORDERED: FUROSEMIDE 10 MG/ML 4 ML VIAL IV STA (17:13)
[2023-01-05 17:16] LABS: Albumin 3.3 g/dL (3.5-5.0); Magnesium 2.2 mg/dL (1.6-2.3); Potassium 4.6 mmol/L (3.5-5.1); Total Protein 6.4 g/dL (6.3-8.2)
[2023-01-05 17:18] LABS: ABG PCO2 102 mmHg (35-45); ABG PH 6.98 (7.35-7.45)
[2023-01-05 17:28] VITALS: BP 76/43; PULSE 125; RESP 20
--- NOTE | 2023-01-05 17:30 | XR ---
EXAMINATION TYPE: XR chest 1V portable DATE OF EXAM: 01/05/2023 5:07 PM COMPARISON: CT chest 08/16/2022 TECHNIQUE: XR chest 1V portable Portable AP radiograph of the chest. CLINICAL INDICATION:Male, 77 years old with history of chest pain; FINDINGS: Lungs/Pleura: Hazy predominantly upper lung airspace opacities are present similar prior chest radiog raph There is no evidence of pleural effusion, focal consolidation, or pneumothorax. Pulmonary vascularity: Unremarkable. Heart/mediastinum: Cardiomediastinal silhouette is unremarkable. Musculoskeletal: No acute osseous pathology. Lines/Tubes: Endotracheal tube with distal tip 3.5 cm above the raymond. IMPRESSION: 1. Endotracheal tube in appropriate position. 2. Diffuse predominantly upper lung airspace opacities correlate for pneumonia.
[2023-01-05 17:38] LABS: INR 1.4 (<1.2); Partial Thromboplastin Time 42.6 sec (22.0-30.0); Prothrombin Time 14.1 sec (9.0-12.0)
--- NOTE | 2023-01-05 17:41 | ED ---
CPR HPI - General Chief Complaint: Cardiac Arrest/CPR Stated Complaint: Cardiac Arrest Time Seen by Provider: 01/05/23 16:23 Source: family, EMS, RN notes reviewed, old records reviewed Mode of arrival: EMS Limitations: no limitations - History of Present Illness Initial Comments: 77-year-old male with a history of heart disease status post a RCA stent in October of this year who apparently earlier today passing out 11:30 started developing retrosternal chest pain he did have improvement of the pain after 2 nitroglycerin. He still didn't feel that well apparently. He did have sudden collapse and went to appear cardiac arrest. EMS was called upon arrival he was unresponsive and pulseless ACLS protocol was started patient was intubated and ultimately placed on a Jose Miguel device. Patient did arrest a second time and route and pulses were return. Upon arrival the patient was unresponsive. He shortly after arrival to go into a pulseless electrical activity rhythm and ACLS was resumed. Patient's states that she did witness the rest no injury apparently occurred unclear how long the patient was down before CPR was started. Per family the patient was scheduled to see Dr. Mart today in the office but he did not feel well enough to go the office today. - Related Data Home Medications Medication Instructions Recorded Confirmed Atorvastatin [Lipitor] 80 mg PO HS 12/26/19 11/01/22 Losartan Potassium [Cozaar] 50 mg PO HS 12/26/19 11/01/22 Niacin [Niaspan] 500 mg PO BID 12/26/19 11/01/22 Omeprazole [PriLOSEC] 40 mg PO HS 12/26/19 11/01/22 metFORMIN HCL [Glucophage] 500 mg PO HS 12/26/19 11/01/22 Memantine HCl 10 mg PO BID 04/07/20 11/01/22 Aspirin [Adult Low Dose Aspirin EC] 81 mg PO DAILY 08/24/20 11/01/22 Donepezil [Aricept] 10 mg PO HS 08/24/20 11/01/22 Isosorbide Mononitrate [Isosorbide 30 mg PO DAILY 10/27/22 11/01/22 Mononitrate ER] Nitroglycerin Sl Tabs [Nitrostat] 0.4 mg SUBLINGUAL DIRECTED PRN 10/27/22 11/01/22 Previous Rx's Medication Instructions Recorded Clopidogrel [Plavix] 75 mg PO DAILY #90 tablet 11/01/22 Allergies Allergy/AdvReac Type Severity Reaction Status Date / Time No Known Allergies Allergy Verified 11/01/22 06:37 Review of Systems ROS Statement: Those systems with pertinent positive or pertinent negative responses have been documented in the HPI. ROS Other: All systems not noted in ROS Statement are negative. 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 that originally they thought was cancer but later the pathologist sent a letter to his physician stating it was not cancer, childhood asthma--outgrown, sleep apnea with surgery to resolve Last Myocardial Infarction Date:: 1997 History of Any Multi-Drug Resistant Organisms: None Reported Past Surgical History: Back Surgery, Bowel Resection, Heart Catheterization With Stent, Tonsillectomy Additional Past Surgical History / Comment(s): stent in right coronary artery by Dr Mart, bowel resection 1979, uvula removal for sleep apnea, left carotid endarterectomy in approximately [address] Evans, back surgery times [address] Rogers, previous lymph node biopsy by Dr Lr - benign. rt neck surgery may 14 Additional Past Anesthesia/Blood Transfusion Reaction / Comment(s): difficult intubation with left carotid endarterectomy surgery but later they always used a glidescope to intubate him Date of Last Stent Placement:: 1997 Past Psychological History: Anxiety Smoking Status: Former smoker Past Alcohol Use History: Rare Past Drug Use History: None Reported - Past Family History Mother Family Medical History: CVA/TIA Father Additional Family Medical History / Comment(s): of surgical complications General Exam - General Exam Comments Initial Comments: This is a well-developed well-nourished unresponsive male with a Jose Miguel device in place an operating patient did have an endotracheal tube with frothy pink sputum emanating. Pulses were palpable with the Jose Miguel device. Lung sounds are diminished bilaterally some evidence of crackles in the bases especially on the right Limitations: no limitations General appearance: other (Unresponsive) Head exam: Present: atraumatic, normocephalic, normal inspection Eye exam: Present: other (Pupils pinpoint no response with midline gaze) ENT exam: Present: other (Orotracheal tube in place frothy sputum noted) Respiratory exam: Present: rales (Evidence of 5 basilar crackles), decreased breath sounds Cardiovascular Exam: Present: other (Jose Miguel machine in process of performing compressions upon arrival) GI/Abdominal exam: Present: soft, distended. Absent: bruit, pulsatile mass Rectal exam: Present: deferred exam: Present: normal inspection Extremities exam: Present: other (Interosseous IV noted in the right upper tibia) Back exam: Present: normal inspection Neurological exam: Present: other (Unresponsive) Psychiatric exam: Present: other (Unresponsive) Skin exam: Present: pallor Course Vital Signs 01/05/23 01/05/23 01/05/23 16:44 16:48 16:50 Pulse Rate 147 H Respiratory 20 Rate Blood Pressure 151/84 O2 Sat by Pulse 81 L Oximetry Fraction of 100 100 Inspired Oxygen (FIO2) 01/05/23 01/05/23 01/05/23 16:54 16:58 17:03 Pulse Rate 110 H 112 H 114 H Respiratory 20 Rate Blood Pressure 104/47 81/65 157/96 O2 Sat by Pulse 82 L 81 L 76 L Oximetry Fraction of Inspired Oxygen (FIO2) 01/05/23 17:13 Pulse Rate 125 H Respiratory Rate Blood Pressure 76/43 O2 Sat by Pulse 81 L Oximetry Fraction of Inspired Oxygen (FIO2) - Reevaluation(s) Reevaluation #1: 01/05/23 20:06 Patient did have multiple episodes of cardiac arrest for a total of 4 he did require CPR as well as IV medications. Respiratory mL in her management. Reevaluation #2: 01/05/23 20:07 I did discuss the initial findings with family members were in the family room. Reevaluation #3: 01/05/23 20:11 Repeat EKG showed evidence of some of the previous EKG however this appears be consistent with atrial flutter rate 137 QRS duration 156 QT since QTC 365/445 right bundle-branch block left posterior fascicular block Medical Decision Making - Medical Decision Making The patient did require multiple dosings of bicarbonate as well as epinephrine. He did become pulseless on for episodes filed: Been irreversible with no evidence of pulse and was flatline a monitor in spite of aggressive therapy.. Admission the patient was to be admitted I had discussed the case with Dr. Cordero as well as Dr. Morocho and Dr. Oneal. Patient did demonstrate elevated d-dimer of unclear etiology the CAT scan was to be performed however the patient did succumb on his fourth episode of pulselessness. He was pronounced at 18:24 PM. I did notify the above physicians as well as medical records library professor's office who did release the patient. Additionally did discuss the case with multiple family members present.Was pt. sent in by a medical professional or institution (, [facility], RAILROAD CAR LOADER, urgent care, hospital, or skilled nursing...) When possible be specific @ -No Did you speak to anyone other than the patient for history (EMS, parent, family, police, friend...)? What history was obtained from this source @ -Paramedics, family members Did you review nursing and triage notes (agree or disagree)? Why? @ -I reviewed and agree with nursing and triage notes Were old charts reviewed (outside hosp., previous admission, EMS record, old EKG, old radiological studies, urgent care reports/EKG's, skilled nursing records)? Report findings @ - old charts were reviewed Differential Diagnosis (chest pain, altered mental status, abdominal pain women, abdominal pain men, vaginal bleeding, weakness, fever, dyspnea, syncope, headache, dizziness, GI bleed, back pain, seizure, CVA, palpatations, mental health, musculoskeletal)? @ -Cardiac arrest, cardiac dysrhythmia EKG interpreted by me (3pts min.). @ -As above X-rays interpreted by me (1pt min.). @ -As above CT interpreted by me (1pt min.). @ -None done U/S interpreted by me (1pt. min.). @ -None done What testing was considered but not performed or refused? (CT, X-rays, U/S, labs)? Why? @ -CT imaging of the chest patient unstable for this. What meds were considered but not given or refused? Why? @ -None Did you discuss the management of the patient with other professionals (professionals i.e. ADRYAN Rausch, RAILROAD CAR LOADER, lab, RT, psych nurse, social work program coordinator, distribution specialist, teacher, natural resource officer, correctional case records supervisor)? Give summary @ -Dr. Oneal, Dr. Cordero, Dr. Morocho Was smoking cessation discussed for >3mins.? @ -No Was critical care preformed (if so, how long)? @ -Yesterday 5 minutes Were there social determinants of health that impacted care today? How? (Homelessness, low income, unemployed, alcoholism, drug addiction, transportation, low edu. Level, literacy, decrease access to med. care, halfway, rehab)? @ -No Was there de-escalation of care discussed even if they declined (Discuss DNR or withdrawal of care, Hospice)? DNR status @ -No What co-morbidities impacted this encounter? (DM, HTN, Smoking, COPD, CAD, Cancer, CVA, ARF, Chemo, Hep., AIDS, mental health diagnosis, sleep apnea, morbid obesity)? @ -Hypertension, coronary artery disease, hyperlipidemia Was patient admitted / discharged? Hospital course, mention meds given and route, prescriptions, significant lab abnormalities, going to OR and other pertinent info. @ -hospital course patient was discharged to the home Undiagnosed new problem with uncertain prognosis? @ -No Drug Therapy requiring intensive monitoring for toxicity (Heparin, Nitro, Insulin, Cardizem)? @ -Yes IV epinephrine IV bicarb, ACLS protocol Were any procedures done? @ -Multiple episodes of CPR and ACLS protocol Diagnosis/symptom? @ -Sudden cardiac , cardiac arrest, asystole Acute, or Chronic, or Acute on Chronic? @ -Acute Uncomplicated (without systemic symptoms) or Complicated (systemic symptoms)? @ -Complicated Side effects of treatment? @ -No Exacerbation, Progression, or Severe Exacerbation? @ -Severe exacerbation of chronic disease Poses a threat to life or bodily function? How? (Chest pain, USA, AR, pneumonia, PE, COPD, DKA, ARF, appy, cholecystitis, CVA, Diverticulitis, Homicidal, Suicidal, threat to staff... and all critical care pts) @ -No - Lab Data Result diagrams: 01/05/23 16:42 01/05/23 16:42 Lab Results 01/05/23 01/05/23 01/05/23 Range/Units 16:42 16:42 16:42 WBC 18.0 H (3.8-10.6) k/uL RBC 4.76 (4.30-5.90) m/uL Hgb 15.2 (13.0-17.5) gm/dL Hct 51.7 (39.0-53.0) % MCV 108.6 H (80.0-100.0) fL MCH 31.9 (25.0-35.0) pg MCHC 29.3 L (31.0-37.0) g/dL RDW 12.1 (11.5-15.5) % Plt Count 145 L (150-450) k/uL MPV 7.8 Neutrophils % 64 % Lymphocytes % 28 % Monocytes % 4 % Eosinophils % 1 % Basophils % 1 % Neutrophils # 11.4 H (1.3-7.7) k/uL Lymphocytes # 5.0 H (1.0-4.8) k/uL Monocytes # 0.7 (0-1.0) k/uL Eosinophils # 0.2 (0-0.7) k/uL Basophils # 0.2 (0-0.2) k/uL Hypochromasia Marked Macrocytosis Moderate PT (9.0-12.0) sec INR (<1.2) APTT (22.0-30.0) sec D-Dimer (<0.60) mg/L FEU Sample Site ABG pH (7.35-7.45) ABG pCO2 (35-45) mmHg ABG pO2 (83-108) mmHg ABG HCO3 (21-25) mmol/L ABG Total CO2 (19-24) mmol/L ABG O2 Saturation (94-97) % ABG Base Excess mmol/L Refugio Test FiO2 % Sodium 141 (137-145) mmol/L Potassium 4.6 (3.5-5.1) mmol/L Chloride 106 (98-107) mmol/L Carbon Dioxide 13 L (22-30) mmol/L Anion Gap 22 mmol/L BUN 21 H (9-20) mg/dL Creatinine 1.25 (0.66-1.25) mg/dL Est GFR (CKD-EPI)AfAm 64 (>60 ml/min/1.73 sqM) Est GFR (CKD-EPI)NonAf 56 (>60 ml/min/1.73 sqM) Glucose 308 H (74-99) mg/dL Calcium 8.4 (8.4-10.2) mg/dL Magnesium 2.2 (1.6-2.3) mg/dL Total Bilirubin 0.7 (0.2-1.3) mg/dL AST 86 H (17-59) U/L ALT 89 H (4-49) U/L Alkaline Phosphatase 110 (38-126) U/L Troponin I 0.251 H* (0.000-0.034) ng/mL NT-Pro-B Natriuret Pep pg/mL Total Protein 6.4 (6.3-8.2) g/dL Albumin 3.3 L (3.5-5.0) g/dL Lipase 243 (23-300) U/L 01/05/23 01/05/23 01/05/23 Range/Units 16:42 17:05 17:07 WBC (3.8-10.6) k/uL RBC (4.30-5.90) m/uL Hgb (13.0-17.5) gm/dL Hct (39.0-53.0) % MCV (80.0-100.0) fL MCH (25.0-35.0) pg MCHC (31.0-37.0) g/dL RDW (11.5-15.5) % Plt Count (150-450) k/uL MPV Neutrophils % % Lymphocytes % % Monocytes % % Eosinophils % % Basophils % % Neutrophils # (1.3-7.7) k/uL Lymphocytes # (1.0-4.8) k/uL Monocytes # (0-1.0) k/uL Eosinophils # (0-0.7) k/uL Basophils # (0-0.2) k/uL Hypochromasia Macrocytosis PT 14.1 H (9.0-12.0) sec INR 1.4 H (<1.2) APTT 42.6 H (22.0-30.0) sec D-Dimer >34.00 H (<0.60) mg/L FEU Sample Site rrad ABG pH 6.98 L* (7.35-7.45) ABG pCO2 102 H* (35-45) mmHg ABG pO2 69 L (83-108) mmHg ABG HCO3 24 (21-25) mmol/L ABG Total CO2 27 H (19-24) mmol/L ABG O2 Saturation 79.0 L (94-97) % ABG Base Excess -7.9 mmol/L Refugio Test Yes FiO2 100 % Sodium (137-145) mmol/L Potassium (3.5-5.1) mmol/L Chloride (98-107) mmol/L Carbon Dioxide (22-30) mmol/L Anion Gap mmol/L BUN (9-20) mg/dL Creatinine (0.66-1.25) mg/dL Est GFR (CKD-EPI)AfAm (>60 ml/min/1.73 sqM) Est GFR (CKD-EPI)NonAf (>60 ml/min/1.73 sqM) Glucose (74-99) mg/dL Calcium (8.4-10.2) mg/dL Magnesium (1.6-2.3) mg/dL Total Bilirubin (0.2-1.3) mg/dL AST (17-59) U/L ALT (4-49) U/L Alkaline Phosphatase (38-126) U/L Troponin I (0.000-0.034) ng/mL NT-Pro-B Natriuret Pep 358 pg/mL Total Protein (6.3-8.2) g/dL Albumin (3.5-5.0) g/dL Lipase (23-300) U/L - EKG Data -: EKG Interpreted by Me EKG Comments: EKG showed a short TX interval tachycardia rate 120. Interval 107 QRS duration 169 QT since QTC 367/438 red bundle-branch block evidence of inferior ST depression in lead 2 - Radiology Data Interpreted by me: I did interpret the initial x-ray the patient's pulmonary vascular markings were increased no definitive evidence of a pneumothorax. Endotracheal tube appeared to be a proximally 4 cm above the raymond. Critical Care Time Critical Care Time: Yes Total Critical Care Time: 85 Disposition Clinical Impression: Cardiac arrest, Sudden cardiac , Cardiac asystole Disposition: Is patient prescribed a controlled substance at d/c from ED?: No Referrals: Timmy Massey Jr, DO [Primary Care Provider] - 1-2 days Decision Date: 01/05/23 Decision Time: 18:24 Preliminary Cause of : Sudden cardiac
[2023-01-05] MEDS ORDERED: EPINEPHrine 4 MG in DEXTROSE 5% IN WATER 250 ML IV SCH ×2 (18:15)
--- NOTE | 2023-01-05 18:28 | XR ---
EXAMINATION TYPE: XR chest 1V confirm line [facility] DATE OF EXAM: 01/05/2023 6:05 PM COMPARISON: Chest radiographs from same day. TECHNIQUE: XR chest 1V confirm line plcfl Portable AP radiograph of the chest. CLINICAL INDICATION:Male, 77 years old with history of OG Placement; FINDINGS: Lungs/Pleura: Bilateral upper lung airspace opacities. There is no evidence of pleural effusion, or p neumothorax. Pulmonary vascularity: Unremarkable. Heart/mediastinum: Cardiomediastinal silhouette is unremarkable. Musculoskeletal: No acute osseous pathology. Other findings: None Lines/Tubes: Endotracheal tube with distal tip 4.1 cm above the raymond. Nasogastric tube with side-port projecting over the mid esophagus. IMPRESSION: Nasogastric tube side-port in the mid esophagus and advancement of at least 19 cm recommended. Stable endotracheal tube and airspace opacities.
== END 2023-01-05 20:29 | disposition expired ==
LOC: EC 16:23
DX: I46.9 Cardiac arrest, cause unspecified (principal); E11.9 Type 2 diabetes mellitus without complications; E78.5 Hyperlipidemia, unspecified; I10 Essential (primary) hypertension; I25.10 Atherosclerotic heart disease of native coronary artery without angina pectoris; I25.2 Old myocardial infarction; J45.909 Unspecified asthma, uncomplicated; K21.9 Gastro-esophageal reflux disease without esophagitis; F01.50 Vascular dementia, unspecified severity, without behavioral disturbance, psychotic disturbance, mood disturbance, and anxiety; Z79.82 Long term (current) use of aspirin; Z79.84 Long term (current) use of oral hypoglycemic drugs; Z79.899 Other long term (current) drug therapy; Z87.891 Personal history of nicotine dependence
CPT/HCPCS: 36415; 36600; 93005; 85379; 83880; 80053; 82805; 83690; 83735; 84484; 85025; 85610; 85730; 71045; 99291; 99292; 96374; 96361; J0171 ×2; J1940